=== PATIENT | male | born 1965 | race Caucasian/White ===

== ENCOUNTER 2021-11-18 08:25 | Day surgery (SDC) | payer MEDICARE ==
--- NOTE | 2021-11-18 08:04 | HP ---
DATE OF SURGERY: 11/18/2021 HISTORY OF PRESENT ILLNESS: The patient is a 56-year-old with some Autism, history of choking and required Heimlich maneuver in the past, problem swallowing. No blood thinners. Family history negative for esophageal cancer. He had CT scan and ultrasound in the past that were reportedly okay although I do not have the actual reports. PAST MEDICAL HISTORY: Hypertension. Autism. Hyperlipidemia. PAST SURGICAL HISTORY: Denied any prior surgeries. MEDICATIONS: Flonase, enalapril, buspirone, cetirizine, Abilify, simvastatin, hydrochlorothiazide, aspirin. ALLERGIES: D & C SUJIT NO. 2. GRASS. POLLEN. BLUE DYE. DENIES ANY KNOWN DRUG ALLERGIES. FAMILY HISTORY: Heart disease, hypertension. SOCIAL HISTORY: No smoking or alcohol abuse. REVIEW OF SYSTEMS: Fourteen systems reviewed per admission assessment. No chest pain or palpitations currently. PHYSICAL EXAMINATION: GENERAL: No acute distress. HEENT: Sclerae nonicteric. NECK: No JVD. CHEST: Equal excursion, nonlabored breathing. CVS: Regular rate and rhythm. ABDOMEN: Soft. No peritoneal signs. EXTREMITIES: No significant edema. NEURO: Alert, oriented, moving extremities symmetrically. PSYCH: Appropriate mood and affect. IMPRESSION: Dysphagia unclear etiology. He is in need of EGD possible biopsy possible dilatation. General risk of bleeding or infection, risk of bowel injury or perforation possibly requiring open procedure, risk of missed or nondiagnosis or incomplete exam possibly requiring barium swallow, other studies or procedures. Possibility if dilatation does improve his swallowing may need repeated again down the road. Possibility that dilatation may not improve swallowing and may need further work up and/or testing or other studies or procedures or possibly different type of dilator at a later date. Will proceed with EGD possible biopsy possible dilatation as an outpatient.
[~2021-11-18 08:25] MED LIST: Lactated Ringers 1,000 ML IV SCH
[2021-11-18] MEDS ORDERED: Lactated Ringers 1,000 ML IV ONE (08:36)
[2021-11-18 09:09] VITALS: PULSE 64
[2021-11-18] MEDS ORDERED: Versed 2 MG/2 ML Injection IV ONE (09:51)
[2021-11-18] MEDS ORDERED: Xylocaine-Mpf 2% 5 Ml Vial ONE (10:29)
[2021-11-18] MEDS ORDERED: DIPRIVAN 200 MG/20 ML IV ONE (10:29)
[2021-11-18 11:45] VITALS: BP 131/83; O2SAT 98
--- NOTE | 2021-11-19 08:53 | OP ---
SURGERY DATE/TIME: 11/18/2021 1039 PREOPERATIVE DIAGNOSES: 1) Dysphagia of unclear etiology. 2) ASA Class II. POSTOPERATIVE DIAGNOSES: 1) Small antral ulcer. 2) Erosive gastritis. 3) Proximal esophageal narrowing and spasm requiring dilatation. PROCEDURES: 1) EGD with cold biopsy of antrum for Helicobacter pylori. 2) Proximal esophageal dilatation (size 20 balloon dilator). SURGEON: Dr. Kentrell Matthews. ANESTHESIA: MAC. ESTIMATED BLOOD LOSS: Minimal. INDICATIONS: As noted above. Risks and benefits explained in detail and not limited to and consent obtained. DESCRIPTION OF PROCEDURE AND FINDINGS: The patient is taken to the endoscopy room. MAC anesthesia introduced. After official time out and no disagreement with planned procedure, a bite block positioned. Video gastroscope passed down the oropharynx. There was some proximal esophageal narrowing and spasm. There were no signs of any obvious lesion to biopsy but given his symptoms in this area it was felt worthwhile to try balloon dilatation at the end of the procedure. The scope was able to be just passed through this area down to the pylorus to the third portion of the duodenum. Third, second and first portions of the duodenum grossly unremarkable. Back in the stomach he did have some evidence of some mild erosive gastritis. There was a small antral ulcer, a little small petechial area with a little blood on it. No signs of any current active bleeding. It was felt he should be continued on proton pump inhibitor given this and consideration of follow up scope eight to [address]. On retroflex there is no evidence of any large hiatal hernia on endoscopic view. The scope was straightened. Gastroesophageal junction about 40 cm. Z-line was fairly crisp. No signs of Contreras's. No signs or erosion. No signs of masses in this area. I did not feel it was worthwhile to biopsy this area. Otherwise the scope was pulled back up proximal esophagus. Again, area of spasm and narrowing but no gross mucosal lesion to biopsy. Because of his symptoms in this area, it was felt worthwhile to try dilatation to see if that improved his overall swallowing. Therefore scope pulled back into the stomach. A 20 balloon catheter carefully passed in the open area of the stomach and then pulled up to the proximal narrowed area in the esophagus where it was carefully inflated for 30 seconds, second stage for 45 stage, final stage size 20 balloon dilator for two minutes. The balloon dilator was then decompressed and withdrawn. The scope much more easily passed through this area back into the stomach and then carefully withdrawn. There were no signs of any full thickness issues or injury secondary to dilatation. The patient tolerated the procedure well. There were no immediate complications. Findings discussed with the family or caregiver out in the waiting area. Intake to be at room temperature for four hours and then advance by five. I will see him back in the office in a couple of weeks.
== END 2021-11-18 12:15 | disposition home or self-care (01) ==
LOC: SDC 08:25
PROVIDERS: ATTEND Surgery
DX: K25.9 Gastric ulcer, unspecified as acute or chronic, without hemorrhage or perforation (principal); K22.2 Esophageal obstruction; K22.4 Dyskinesia of esophagus; R13.10 Dysphagia, unspecified; K29.70 Gastritis, unspecified, without bleeding
CPT/HCPCS: J2250; J2704

== ENCOUNTER 2022-01-20 09:48 | Day surgery (SDC) | payer MEDICARE ==
--- NOTE | 2022-01-20 08:20 | HP ---
DATE OF SURGERY: 01/20/2022 HISTORY OF PRESENT ILLNESS: The patient is a 56-year-old had endoscopy in the past noted to have an ulcer. He is now in need of follow up upper endoscopy to evaluate healing of his ulcer that he had at the time of original endoscopy. Again, he had an antral ulcer at the time of endoscopy back in October. He is in need of follow up upper endoscopy to evaluate for healing. It is felt he would benefit from upper endoscopy. PAST MEDICAL HISTORY: Severe autism. Hypertension. Hyperlipidemia. Seasonal allergies. PAST SURGICAL HISTORY: Upper endoscopy in the past. MEDICATIONS: Flonase, cetirizine, Enalapril, buspirone, Abilify, simvastatin, aspirin, hydrochlorothiazide. ALLERGIES: D&C SUJIT NO. 2. POLLEN. BLUE DYE. GRASS. FAMILY HISTORY: Allergies. Breast cancer. Hypertension. SOCIAL HISTORY: No smoking or alcohol abuse. REVIEW OF SYSTEMS: Fourteen systems reviewed. No chest pain or palpitations. Other systems negative or noncontributory as above and per preadmission questionnaire. He is swallowing better since he had dilatation in the past. PHYSICAL EXAMINATION: GENERAL: No acute distress. HEENT: Sclerae nonicteric. NECK: No JVD. CHEST: Equal excursion, nonlabored breathing. CVS: Regular rate and rhythm. ABDOMEN: Soft. No peritoneal signs. EXTREMITIES: No significant edema. NEURO: Alert, oriented. He does have severe autism. PSYCH: Severe autism. IMPRESSION: History of antral ulcer. He is in need of follow up upper endoscopy. I feel he is a candidate. Risks and benefits explained in detail including but not limited to bleeding or infection, risk of bowel injury or perforation possibly requiring open procedure, risk of missed or nondiagnosis or incomplete exam possibly requiring barium swallow, other studies or procedures. General risk of anesthesia or sedation but not limited to, consent obtained. Will proceed with EGD possible biopsy as an outpatient.
[2022-01-20] MEDS ORDERED: Lactated Ringers 1,000 ML IV SCH (10:00)
[2022-01-20] MEDS ORDERED: Lactated Ringers 1,000 ML IV ONE (10:08)
[2022-01-20] MEDS ORDERED: Versed 2 MG/2 ML Injection IV ONE (10:41)
[2022-01-20] MEDS ORDERED: Versed 2 MG/2 ML Injection ONE ×2 (10:46→11:48)
[2022-01-20] MEDS ORDERED: DIPRIVAN 200 MG/20 ML IV ONE (11:48)
[2022-01-20] MEDS ORDERED: Xylocaine-Mpf 2% 5 Ml Vial ONE (11:49)
[2022-01-20 12:35] VITALS: O2SAT 99
[2022-01-20 13:16] VITALS: BP 130/86; PULSE 64
--- NOTE | 2022-01-20 15:16 | OP ---
SURGERY DATE/TIME: 01/20/2022 1149 PREOPERATIVE DIAGNOSIS: History of antral area ulcer, history of peptic ulcer disease in the past, need for follow up upper endoscopy to evaluate for healing. POSTOPERATIVE DIAGNOSES: 1) Healed ulcer site. 2) Minimal to mild gastritis. PROCEDURES: EGD with cold biopsy of antrum to evaluate for Helicobacter pylori. SURGEON: Dr. Kentrell Matthews. ANESTHESIA: MAC. ESTIMATED BLOOD LOSS: Minimal. INDICATIONS: As noted above. Risks and benefits explained in detail and not limited to and consent obtained. DESCRIPTION OF PROCEDURE AND FINDINGS: MAC anesthesia introduced. Bite block positioned. Video gastroscope easily passed down the esophagus through the patent pylorus to the third portion of the duodenum. Third, second, first portion of duodenum grossly unremarkable. Back in the stomach wear he had the previous ulcer appeared to be healed. He did have a little bit of erythema and possible some minimal to mild gastritis. Cold biopsy take to evaluate for Helicobacter pylori. Good hemostasis noted. On retroflex the gastroesophageal junction snug against the scope. Gastroesophageal junction about 40 cm. Z-line appeared to be fairly crisp. No signs of any Contreras's. No signs of any obvious erosion. Cold biopsy had been taken in the antrum for Helicobacter pylori otherwise the scope is slowly and carefully withdrawn. The remainder of the esophagus grossly unremarkable. There were no immediate complications. There was no caregiver or family in the waiting area to discuss the findings with. Hi primary care provider can decide whether to transition him down to a histamine receptor fritz and also the proton pump inhibitor as his ulcer is healing. He can follow up as needed in the office next week. If the Helicobacter pylori is positive, will call his home and arrange for antibiotics if needed.
== END 2022-01-20 13:10 | disposition home or self-care (01) ==
LOC: SDC 09:48
PROVIDERS: ATTEND Surgery
DX: K29.70 Gastritis, unspecified, without bleeding (principal); Z87.11 Personal history of peptic ulcer disease
CPT/HCPCS: J2250; J2704

== ENCOUNTER 2022-02-15 10:16 | Emergency (ER) | payer MEDICARE ==
[2022-02-15 12:03] LABS: INFLUENZA A NEGATIVE (NEGATIVE); INFLUENZA B NEGATIVE (NEGATIVE); RESPIRATORY SYNCTIAL VIRUS NEGATIVE (Negative)
[2022-02-15 12:36] LABS: SARS-CoV-2 Xpert Express POSITIVE (NEGATIVE)
[2022-02-15 12:44] VITALS: BP 178/92; O2SAT 98
--- NOTE | 2022-02-15 13:10 | ERPHSYRPT ---
- History of Present Illness Time Seen by Provider: 02/15/22 10:24 Source: patient Exam Limitations: clinical condition Patient Subjective Stated Complaint: pt here for right groin pain this morning at about 0730,and was crying at home, he is mentally disabled, and normally does not co pain, now in er he only co is pain to chest, pt is a poor historian,. Triage Nursing Assessment: pt alert, resp easy, face mask in place, abd soft, no swelling or pain to scrotum, skin w/d/p Allergies/Adverse Reactions: D and C jus no. 2 [D & C jus no. 2] Allergy (Verified 02/15/22 10:38) blue dye Home Medications: Buspirone HCl 7.5 mg PO BID 02/08/16 [History] Enalapril Maleate 20 mg PO BID 02/08/16 [History] Fluticasone Propionate [Flonase Nasal] 50 mcg INTRANASAL DAILY 02/08/16 [History ] Simvastatin 40 mg PO DAILY 02/08/16 [History] hydroCHLOROthiazide [Hydrochlorothiazide] 12.5 mg PO DAILY 02/08/16 [History] Aripiprazole [Abilify] 15 mg PO DAILY 11/11/21 [History] Cetirizine HCl [All Day Allergy] 10 mg PO DAILY 11/11/21 [History] Enzymes,Digestive [Enzyme Digest] 1 each PO TID 11/11/21 [History] Lactobacillus Acidophilus [Acidophilus] 1 each PO BID PRN 11/11/21 [History] Hx Tetanus, Diphtheria Vaccination/Date Given: Yes (up to date) Hx Influenza Vaccination/Date Given: Yes Hx Pneumococcal Vaccination/Date Given: No Immunizations Up to Date: Yes Travel Risk - International Travel Have you traveled outside of the country in past 3 weeks: No - Coronavirus Screening Are you exhibiting any of the following symptoms?: No Close contact with a COVID-19 positive Pt in past 14-21 Days: No - Vaccine Status Have you recieved a Covid-19 vaccination: Yes 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 - Vaccination Dates Date of 2cond Vaccination (if applicable): 2020 - Past Medical History Pertinent Past Medical History: Yes Neurological History: No Pertinent History, Other ENT History: No Pertinent History Cardiac History: High Cholesterol, Hypertension Respiratory History: No Pertinent History Endocrine Medical History: No Pertinent History Musculoskeletal History: No Pertinent History GI Medical History: No Pertinent History, Esophageal Disorder History: No Pertinent History Psycho-Social History: Anxiety, Other Male Reproductive Disorders: No Pertinent History Other Medical History: autism/mild intellectual disabiliy - Past Surgical History Past Surgical History: No Neuro Surgical History: No Pertinent History Cardiac: No Pertinent History Respiratory: No Pertinent History Gastrointestinal: No Pertinent History Genitourinary: No Pertinent History Musculoskeletal: No Pertinent History Male Surgical History: No Pertinent History Other Surgical History: previous EGD - Social History Smoking Status: Never smoker Exposure to second hand smoke: No Drug Use: none 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) - Nursing Vital Signs Nursing Vital Signs: Initial Vital Signs Temperature 97.7 F 02/15/22 10:36 Pulse Rate 90 02/15/22 10:36 Respiratory Rate 18 02/15/22 10:36 Blood Pressure 171/98 02/15/22 10:36 O2 Sat by Pulse Oximetry 99 02/15/22 10:36 Pain Scale Pain Intensity 0 - Physical Exam SpO2: 98 - Course EKG Interpreted by Me: RATE (91), Sinus Rhythm, NORMAL AXIS, NORMAL INTERVALS, NORMAL QRS Ordered Tests: Active Orders 24 hr Category Date Time Status ABDOMEN AND PELVIS W/0 CONTRAS [CT] Stat Exams 02/15/22 10:59 Taken CHEST WITHOUT CONTRAST [CT] Stat Exams 02/15/22 10:59 Taken TROPONIN Q4H Lab 02/15/22 11:20 Completed TROPONIN Q4H Lab 02/15/22 15:00 Ordered TROPONIN Q4H Lab 02/15/22 19:00 Ordered TROPONIN Q4H Lab 02/15/22 23:00 Ordered Lab/Rad Data: Laboratory Results 02/15/22 02/15/22 Range/Units 11:20 11:20 Troponin I < 0.012 (0.000-0.034) ng/mL Influenza Type A Ag NEGATIVE (NEGATIVE) Influenza Type B Ag NEGATIVE (NEGATIVE) RSV (PCR) NEGATIVE (Negative) SARS-CoV-2 (PCR) POSITIVE A (NEGATIVE) - Progress Progress: re-examined Progress Note: 02/15/22 13:09 [id number] Counseled pt/family regarding: lab results, diagnosis, need for follow-up, rad results - Departure Departure Disposition: Home Clinical Impression: COVID-19 virus detected, Viral syndrome, Renal mass Condition: Stable Critical Care Time: No Referrals: RICHARD PLEITEZ MD [Primary Care Provider] - Follow Up with PCP/3 days Instructions: Viral Syndrome (DC), COVID-19 (DC) Additional Instructions: Use Tylenol/ibuprofen as needed for aches and pains. Follow-up with primary care for reevaluation and also for CAT scan of kidney for further evaluation of mass/cyst. Return to ER for worsening aches and pains, diarrhea, vomiting, persistent high-grade fever or chills, difficulty breathing etc. Prescriptions: Nirmatrelvir/Ritonavir [Paxlovid 300-100 mg Pack (Eua)] 1 each PO BID 5 Days #30 tab
[2022-02-15 13:35] VITALS: PULSE 97
--- NOTE | 2022-02-15 20:58 | XRAY ---
Indication: Chest pain. Multiple contiguous sections images obtained through the chest without contrast. Comparison: None Lungs inflated and clear. Heart not enlarged. Aorta is normal in course and caliber. Small subcarinal and left hilar calcified nodes. No pathologic mediastinal lymphadenopathy. Bony thorax intact with mild degenerative changes throughout the spine. CT abdomen/pelvis reported separately. Impression: 1. Degenerative spondylosis and old granulomatous disease. 2. Remaining CT chest without contrast exam is negative. Comment: Preliminary interpretation made by [facility]. No critical discrepancy.
--- NOTE | 2022-02-15 21:02 | XRAY ---
Indication: Right groin pain. Multiple contiguous axial images obtained through the abdomen and pelvis without contrast. Comparison: None CT chest reported separately. Several images degraded by respiration artifact. Stomach distended with food/fluid. Noncontrasted stomach and bowel loops appear nonobstructed with normal appendix. No free fluid/air. Left lower kidney demonstrates a 2.3 cm exophytic mass. Incidental 14.1 cm splenomegaly. Remaining liver, gallbladder, pancreas, spleen, adrenal glands, kidneys, ureters, and bladder are unremarkable for noncontrast exam. Mild scattered aortoiliac calcification without AAA. Osseous structures intact with minimal degenerative changes throughout the spine. No ventral or inguinal hernias. Impression: 1. Respiration artifact. 2. Indeterminate left lower renal exophytic mass. CT or MRI with contrast exam may yield further information. 3. Incidental splenomegaly. 4. Remaining CT abdomen/pelvis without contrast exam is negative. Comment: Preliminary interpretation made by [facility]. No critical discrepancy.
== END 2022-02-15 14:00 | disposition home or self-care (01) ==
LOC: ED 10:16
DX: U07.1 COVID-19 (principal); N28.89 Other specified disorders of kidney and ureter; R07.9 Chest pain, unspecified; E78.5 Hyperlipidemia, unspecified; I10 Essential (primary) hypertension; Z79.899 Other long term (current) drug therapy
CPT/HCPCS: 0241U; 36415; 71250; 74176; 80053; 80061; 83036; 83721; 84439; 84443; 84484; 85025; 99283

== ENCOUNTER 2023-04-13 09:27 | Emergency (ER) | payer MEDICARE ==
[2023-04-13 09:49] VITALS: BP 160/80; PULSE 70; RESP 16; TEMP 97.2; O2SAT 99
[2023-04-13 10:06] LABS: Group A Strep NOT DETECTED (NEGATIVE)
--- NOTE | 2023-04-13 10:12 | XRAY ---
Indication: Cough and short of breath. Comparison: None Portable chest inflated and clear. Heart not enlarged with small subcarinal calcified node. Bony thorax intact with osteopenia and mild degenerative changes. Impression: Nonacute chest with chronic features.
[2023-04-13 10:18] LABS: INFLUENZA A NEGATIVE (NEGATIVE); INFLUENZA B NEGATIVE (NEGATIVE); RESPIRATORY SYNCTIAL VIRUS NEGATIVE (NEGATIVE); SARS-CoV-2 Xpert Express NEGATIVE (NEGATIVE)
--- NOTE | 2023-04-13 10:19 | ERPHSYRPT ---
- History of Present Illness Time Seen by Provider: 04/13/23 09:44 Source: patient, family Exam Limitations: no limitations Patient Subjective Stated Complaint: Sister states that the pt has had a cough for about a month and they have been to [facility] and Dr. Ramirez. pt states that his head hurts, throat, and chest Triage Nursing Assessment: Pt brought to the ER by his sister, hypertensive, pt unable to state his pain rate but when asked if his throat, head, and chest hurt he stated that it hurt "a lot" so this nurse rated it as 6/10, pt has been coughing for over a month and has went to [facility] and Dr. Ramirez but nothing has helped, pt has clear nasal drainage running down his nose, unable to cough anything up, sister states that he has been running a low grade fever off and on and pt is afebrile at this time, pulses normal, skin n/w/d, doesn't appear to be in any distress Physician History: 57 years old with history of autism is brought in the ER with chief complaint of cough congestion for over 1 month. Patient has been evaluated in urgent care and primary care office and has finished course of Z-Rmeigio and steroid with no significant relief. Patient reports still having clear to yellow sputum pro ductive cough congestion, sore throat and off-and-on headache. No fever or chills reported. No obvious difficulty breathing reported. Because of repeated coughing having generalized chest soreness which he relates 6/10 intensity which hurts with coughing and no chest pain otherwise. On exam lungs are fairly clear to auscultation. Patient oxygen saturation are 98% on room air. Does have pharyngeal erythema/nasal mucosal injections but no maxillary tenderness. Abdominal exam is soft nontender. Patient is not tachypneic or tachycardic. X-rays are negative for acute infiltrative process. Has negative flu COVID and RSV. I believe patient has bronchitis, will treat with doxycycline and have him a prescription of albuterol inhaler as well to take as needed. Outpatient follow-up recommended. Discussed signs symptoms of worsening needing return to ER which patient/guardian seem understanding. Allergies/Adverse Reactions: D and C jus no. 2 [D & C jus no. 2] Allergy (Verified 04/13/23 09:49) blue dye Home Medications: Buspirone HCl 10 mg PO BID 02/08/16 [History] Enalapril Maleate 20 mg PO BID 02/08/16 [History] Fluticasone Propionate [Flonase Nasal] 50 mcg INTRANASAL DAILY 02/08/16 [History] Simvastatin 40 mg PO DAILY 02/08/16 [History] hydroCHLOROthiazide [Hydrochlorothiazide] 12.5 mg PO DAILY 02/08/16 [History] Aripiprazole [Abilify] 15 mg PO DAILY 11/11/21 [History] Cetirizine HCl [All Day Allergy] 10 mg PO DAILY 11/11/21 [History] Enzymes,Digestive [Enzyme Digest] 1 each PO TID 11/11/21 [History] Lactobacillus Acidophilus [Acidophilus] 1 each PO BID PRN 11/11/21 [History] Famotidine 20 mg [Pepcid 20 MG] 20 mg PO DAILY 04/13/23 [History] Hx Tetanus, Diphtheria Vaccination/Date Given: Yes (up to date) Hx Influenza Vaccination/Date Given: Yes Hx Pneumococcal Vaccination/Date Given: No Travel Risk - International Travel Have you traveled outside of the country in past 3 weeks: No - Coronavirus Screening Are you exhibiting any of the following symptoms?: No Close contact with a COVID-19 positive Pt in past 14-21 Days: No - Vaccine Status Have you recieved a Covid-19 vaccination: Yes 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 - Vaccination Dates Date of 2cond Vaccination (if applicable): 2020 - Review of Systems Constitutional: No Symptoms Eyes: No Symptoms Ears, Nose, & Throat: Nose Congestion, Throat Swelling Respiratory: Cough Cardiac: Chest Pain Abdominal/Gastrointestinal: No Symptoms Genitourinary Symptoms: No Symptoms Neurological: No Symptoms Endocrine: No Symptoms - Past Medical History Pertinent Past Medical History: Yes Neurological History: No Pertinent History, Other ENT History: No Pertinent History Cardiac History: High Cholesterol, Hypertension Respiratory History: No Pertinent History Endocrine Medical History: No Pertinent History Musculoskeletal History: No Pertinent History GI Medical History: No Pertinent History, Esophageal Disorder History: No Pertinent History Psycho-Social History: Anxiety, Other Male Reproductive Disorders: No Pertinent History Other Medical History: autism/mild intellectual disabiliy - Past Surgical History Past Surgical History: No Neuro Surgical History: No Pertinent History Cardiac: No Pertinent History Respiratory: No Pertinent History Gastrointestinal: No Pertinent History Genitourinary: No Pertinent History Musculoskeletal: No Pertinent History Male Surgical History: No Pertinent History Other Surgical History: previous EGD - Social History Smoking Status: Never smoker Exposure to second hand smoke: No Drug Use: none 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) - Nursing Vital Signs Nursing Vital Signs: Initial Vital Signs Temperature 97.2 F 04/13/23 09:34 Pulse Rate 70 04/13/23 09:34 Respiratory Rate 17 04/13/23 09:34 Blood Pressure 160/80 04/13/23 09:34 O2 Sat by Pulse Oximetry 99 04/13/23 09:34 Pain Scale Pain Intensity 6 - Physical Exam General Appearance: no apparent distress, alert Eye Exam: PERRL/EOMI Ears, Nose, Throat Exam: pharyngeal erythema Neck Exam: normal inspection, supple, full range of motion Respiratory Exam: normal breath sounds, lungs clear Cardiovascular Exam: regular rate/rhythm, normal heart sounds Gastrointestinal/Abdomen Exam: soft, No tenderness Back Exam: normal inspection, normal range of motion Extremity Exam: normal inspection, normal range of motion Neurologic Exam: alert, oriented x 3, cooperative Skin Exam: normal color SpO2 Interpretation: normal SpO2: 99 O2 Delivery: Room Air Ordered Tests: Active Orders 24 hr Category Date Time Status CHEST 1 VIEW (PORTABLE) Stat Exams 04/13/23 09:33 Completed Lab/Rad Data: Laboratory Results 04/13/23 Range/Units 09:40 Influenza Type A Ag NEGATIVE (NEGATIVE) Influenza Type B Ag NEGATIVE (NEGATIVE) RSV (PCR) NEGATIVE (NEGATIVE) SARS-CoV-2 (PCR) NEGATIVE (NEGATIVE) Group A Strep Antibody NOT DETECTED (NEGATIVE) - Progress Progress: unchanged Air Movement: good Progress Note: 04/13/23 10:18 57 years old with history of autism is brought in the ER with chief complaint of cough congestion for over 1 month. Patient has been evaluated in urgent care and primary care office and has finished course of Z-Remigio and steroid with no significant relief. Patient reports still having clear to yellow sputum productive cough congestion, sore throat and off-and-on headache. No fever or chills reported. No obvious difficulty breathing reported. Because of repeated coughing having generalized chest soreness which he relates 6/10 intensity which hurts with coughing and no chest pain otherwise. On exam lungs are fairly clear to auscultation. Patient oxygen saturation are 98% on room air. Does have pharyngeal erythema/nasal mucosal injections but no maxillary tenderness. Abdominal exam is soft nontender. Patient is not tachypneic or tachycardic. X-rays are negative for acute infiltrative process. Has negative flu COVID and RSV. I believe patient has bronchitis, will treat with doxycycline and have him a prescription of albuterol inhaler as well to take as needed. Outpatient follow-up recommended. Discussed signs symptoms of worsening needing return to ER which patient/guardian seem understanding. Blood Culture(s) Obtained: No Antibiotics given: Yes Counseled pt/family regarding: lab results, diagnosis, need for follow-up, rad results - Departure Departure Disposition: Home Clinical Impression: Bronchitis Condition: Stable Critical Care Time: No Referrals: RICHARD RAMIREZ MD [Primary Care Provider] - Follow up with PCP 2 days Instructions: Cough, Adult (DC) Additional Instructions: Continue with your current medications, use inhaler as needed. Follow-up with primary care for reevaluation. Return to ER for any worsening. Prescriptions: Albuterol Sulfate [Albuterol Sulfate Hfa] 8.5 gm IH Q6H PRN 14 Days #1 inh PRN Reason: Cough Doxycycline Hyclate 100 mg [Vibramycin 100 MG] 100 mg PO BID #14 tab
== END 2023-04-13 10:31 | disposition home or self-care (01) ==
LOC: ED 09:27
DX: J40 Bronchitis, not specified as acute or chronic (principal); R05.3 Chronic cough; J02.9 Acute pharyngitis, unspecified; R51.9 Headache, unspecified; E78.5 Hyperlipidemia, unspecified; I10 Essential (primary) hypertension; Z79.899 Other long term (current) drug therapy
CPT/HCPCS: 0241U; 71045; 87651; 99282